=== PATIENT | female | born 1990 ===

== ENCOUNTER 2024-03-16 05:40 | Day surgery (SDC) | payer OTHER ==
[~2024-03-16] VITALS: Ht 160 cm; Wt 81.2 kg
[2024-03-16] MEDS ORDERED: ONDANSETRON HCL 2 MG/ML VIAL IV ONE (10:45)
[2024-03-16] MEDS ORDERED: KETOROLAC TROMETHAMINE 60 MG VIAL IM ONE (10:45)
== END 2024-03-16 16:20 | disposition home or self-care (01) ==
LOC: CIR.AMB 05:40
PROVIDERS: ATTEND Obstetrics & Gynecology
DX: N84.0 Polyp of corpus uteri (principal); D64.9 Anemia, unspecified